=== PATIENT | female | born 1960 | race African-American/Black ===

== ENCOUNTER 2019-07-24 15:10 | Inpatient (IN) ==
[2019-07-24] MEDS ORDERED: ASPIRIN 300 MG SUPP RECTAL ONE (15:31)
[2019-07-24] MEDS ORDERED: LIDOCAINE 1% 20 ML VIAL ONE (15:33)
[2019-07-24] MEDS ORDERED: TIROFIBAN 5,000 MCG/100 ML PREMIX IV ONE (15:33)
[2019-07-24] MEDS ORDERED: HEPARIN 5,000 UNIT/1 ML VIAL ONE (15:47)
[2019-07-24] MEDS ORDERED: TIROFIBAN 5,000 MCG/100 ML PREMIX IV SCH (15:50)
[2019-07-24] MEDS ORDERED: METOPROLOL TARTRATE 5 MG/5 ML VIAL IV ONE ×3 (16:10→16:28)
[2019-07-24] MEDS ORDERED: NIFEdipine 10 MG CAPSULE PO ONE (16:40)
[2019-07-24] MEDS ORDERED: TICAGRELOR 90 MG TABLET ONE (16:44)
[2019-07-24] MEDS ORDERED: TICAGRELOR 90 MG TABLET PO STA (16:47)
[2019-07-24] MEDS ORDERED: ONDANSETRON 4 MG/2 ML VIAL IV PRN (17:46)
[2019-07-24] MEDS ORDERED: MAGNESIUM SULF RIDER 4 GM in PREMIX 1 EACH IV PRN (17:46)
[2019-07-24] MEDS ORDERED: fentaNYL INJ 1,250 MCG in SODIUM CHLORIDE 0.9% 225 ML IV PRN (17:53)
[2019-07-24] MEDS ORDERED: MIDAZOLAM 100 MG in SODIUM CHLORIDE 0.9% 80 ML IV PRN (17:53)
[2019-07-24] MEDS ORDERED: PHENYLEPHRINE INJ 160 MG in SODIUM CHLORIDE 0.9% 234 ML IV PRN (17:53)
[2019-07-24] MEDS ORDERED: NOREPINEPHRINE 16 MG in SODIUM CHLORIDE 0.9% 234 ML IV PRN (17:53)
[2019-07-24] MEDS ORDERED: SODIUM CHLORIDE 0.9% 1,000 ML IV SCH (18:00)
[2019-07-24] MEDS ORDERED: CISATRACURIUM 200 MG in SODIUM CHLORIDE 0.9% 180 ML IV SCH (18:00)
[2019-07-24] MEDS ORDERED: ASPIRIN CHEW 81 MG TABLET PO ONE (18:02)
[2019-07-24 18:56] LABS: Apearance,Urine CLEAR (Clear); Bacteria,Urine Occasional /HPF (Few); Bilirubin,Urine Negative (Negative); Blood, Urine Large mg/dL (Negative); Glucose,Urine (UA) >=500 mg/dL (Negative); Ketones,Urine Negative (Negative); Mucus,Urine Occasional /LPF (Occasional); Nitrite,Urine Negative (Negative); Protein,Urine 30 MG/DL; RBC,Urine 163 /HPF (0-4); Squamous Epithelial Cell,Urine Occasional /HPF (0-10); Urine Color Yellow (Yellow); Urine Specific Gravity > 1.060 (1.001-1.035); Urine Urobilinogen < 2.0 EU/DL (0.2-1.0); WBC,Urine <1 /HPF (0-6)
[2019-07-24 19:56] LABS: PT Patient Result 10.5 SECS (9.6-12.2); Partial Thromboplastin Time 26.2 SECS (20.8-36.0)
[2019-07-24 20:24] LABS: ABG HCO3 24.5 MMOL/L (20-26); ABG Oxygen Saturation 99.7 % (95-100); ABG PCO2 32.6 MM HG (35-48); ABG TCO2 17.8 MMOL/L (23-27)
[2019-07-24 20:27] LABS: CKMB % 8.5 %
[2019-07-24] MEDS: LOSARTAN 25 MG TABLET PO SCH (20:58)
[2019-07-24] MEDS: TICAGRELOR 90 MG TABLET PO SCH (20:58)
[2019-07-24] MEDS: carvediloL 6.25 MG TABLET PO SCH (20:58)
[2019-07-24] MEDS: ROSUVASTATIN 20 MG TABLET PO SCH (21:23)
[2019-07-25 00:51] LABS: Risk Ratio 5.04; VLDL CHOLESTEROL 28.2 MG/DL
[2019-07-25 03:21] LABS: CKMB % 5.9 %; Calcium 8.6 MG/DL (8.5-10.1); Osmolality,Calculated 282.3 MOS/KG (273-304)
[2019-07-25 03:22] LABS: Basophils % 0.1 % (0.0-0.8); Hematocrit 34.5 VOL% (35.7-47.0); Hemoglobin 12.1 GM/DL (12.0-16.0); Immature Granulocytes % 0.5 %; Immature Granulocytes Absolute 0.08 #; Lymphocytes # 1.8 10*3/uL (1.4-4.0); Lymphocytes % 10.9 % (21.3-54.2); Mean Corpuscular HGB Conc 35.1 GM/DL (32-36); Mean Corpuscular Volume 77.2 FL (87-102); Mean Platelet Volume 9.9 FL (9.6-12.0); Monocytes % 6.6 % (1.7-12.7); Neutrophils % 81.9 % (38.7-73.9); Platelet Count 286 T/CUMM (130-400); Red Blood Count 4.47 MC/CUMM (3.8-5.5); Red Cell Distribution Width 14.2 % (9.3-17.3); White Blood Count 16.4 T/CUMM (4-12)
[2019-07-25 03:30] LABS: Troponin I 95.7 NG/ML (0.00-0.045)
[2019-07-25 03:31] LABS: PT Patient Result 10.9 SECS (9.6-12.2); Partial Thromboplastin Time 23.3 SECS (20.8-36.0)
[2019-07-25 03:41] LABS: Albumin 3.2 G/DL (3.4-5.0); Bilirubin,Total 0.8 MG/DL (0.2-1.0); Calcium 8.7 MG/DL (8.5-10.1); Osmolality,Calculated 286.8 MOS/KG (273-304); Total Protein 6.5 G/DL (6.4-8.3)
[2019-07-25] MEDS: MAGNESIUM SULF RIDER 2 GM in PREMIX 1 EACH IV PRN (04:00)
[2019-07-25] MEDS: POTASSIUM CHLORIDE RIDER 20 MEQ in PREMIX 1 EACH IV PRN ×3 (04:01→12:16)
[2019-07-25] MEDS ORDERED: INSULIN REGULAR 100 UNIT/ML IV SCH (06:00)
[2019-07-25 06:48] LABS: ABG HCO3 22.7 MMOL/L (20-26); ABG Oxygen Saturation 98.9 % (95-100); ABG PCO2 34.9 MM HG (35-48); ABG PH 7.432 (7.35-7.45); ABG TCO2 23.8 MMOL/L (23-27)
[2019-07-25] MEDS: POTASSIUM CHLORIDE RIDER 10 MEQ in PREMIX 1 EACH IV PRN (07:40)
[2019-07-25] MEDS ORDERED: carvediloL 6.25 MG TABLET PO SCH (08:00)
[2019-07-25] MEDS: ASPIRIN CHEW 81 MG TABLET PO SCH (08:57)
[2019-07-25] MEDS: LOSARTAN 25 MG TABLET PO SCH (08:57)
[2019-07-25] MEDS: TICAGRELOR 90 MG TABLET PO SCH ×2 (08:57→20:50)
[2019-07-25] MEDS: PANTOPRAZOLE 40 MG VIAL IV SCH (08:58)
[2019-07-25 09:18] LABS: CKMB % 4.4 %
[2019-07-25] MEDS ORDERED: INFLUENZA VIRUS VACCINE 0.5 ML SYRINGE IM ONE (11:58)
[2019-07-25 12:10] LABS: CKMB % 3.9 %
[2019-07-25] MEDS: carvediloL 12.5 MG TABLET PO SCH ×2 (12:15→20:38)
[2019-07-25] MEDS: SPIRONOLACTONE 25 MG TABLET PO SCH ×2 (12:15→20:38)
[2019-07-25] MEDS ORDERED: LORazepam 2 MG/1 ML VIAL ONE (12:34)
[2019-07-25] MEDS: LORazepam 2 MG/1 ML VIAL IV PRN (12:35)
[2019-07-25] MEDS ORDERED: SODIUM CHLORIDE 0.9% 500 ML IV ONE (13:20)
[2019-07-25] MEDS: LOSARTAN 50 MG TABLET PO SCH (13:54)
[2019-07-25] MEDS ORDERED: GLUCAGON 1 MG VIAL IM PRN (16:25)
[2019-07-25] MEDS ORDERED: DEXTROSE 10% 250 ML BAG IV PRN (16:25)
[2019-07-25 16:48] LABS: CKMB % 2.5 %
[2019-07-25 16:49] LABS: Troponin I 51.8 NG/ML (0.00-0.045)
[2019-07-25] MEDS: DEXTROSE 5% NACL 0.45% 1,000 ML IV SCH (18:06)
[2019-07-25] MEDS: INSULIN REGULAR 100 UNIT/ML SUBCUT SCH (18:30)
[2019-07-25] MEDS: ROSUVASTATIN 20 MG TABLET PO SCH (20:39)
[2019-07-26 01:21] LABS: CKMB % 1.4 %
[2019-07-26 01:22] LABS: Troponin I 32.7 NG/ML (0.00-0.045)
[2019-07-26 04:25] LABS: ABG Base Excess 2.1 MMOL/L (-2.5-2.5); ABG HCO3 26.3 MMOL/L (20-26); ABG Oxygen Saturation 99.7 % (95-100); ABG PCO2 36.1 MM HG (35-48); ABG PH 7.461 (7.35-7.45); ABG TCO2 23.2 MMOL/L (23-27)
[2019-07-26] MEDS: INSULIN REGULAR 100 UNIT/ML SUBCUT SCH ×4 (06:04→17:29)
[2019-07-26] MEDS: DEXTROSE 5% NACL 0.45% 1,000 ML IV SCH ×2 (07:05→20:50)
[2019-07-26 08:49] LABS: Basophils % 0.1 % (0.0-0.8); Hematocrit 28.7 VOL% (35.7-47.0); Immature Granulocytes % 0.5 %; Lymphocytes # 1.9 10*3/uL (1.4-4.0); Lymphocytes % 10.1 % (21.3-54.2); Mean Corpuscular HGB Conc 34.8 GM/DL (32-36); Mean Corpuscular Volume 79.1 FL (87-102); Mean Platelet Volume 9.6 FL (9.6-12.0); Monocytes % 5.3 % (1.7-12.7); Red Blood Count 3.63 MC/CUMM (3.8-5.5); Red Cell Distribution Width 14.6 % (9.3-17.3); White Blood Count 19.1 T/CUMM (4-12)
[2019-07-26 08:56] LABS: Platelet Count 224 T/CUMM (130-400)
[2019-07-26] MEDS: TICAGRELOR 90 MG TABLET PO SCH ×2 (09:10→21:04)
[2019-07-26] MEDS: PANTOPRAZOLE 40 MG VIAL IV SCH (09:10)
[2019-07-26] MEDS: ASPIRIN CHEW 81 MG TABLET PO SCH (09:10)
[2019-07-26] MEDS: SPIRONOLACTONE 25 MG TABLET PO SCH (09:11)
[2019-07-26] MEDS: carvediloL 12.5 MG TABLET PO SCH ×3 (09:11→23:21)
[2019-07-26] MEDS: LOSARTAN 50 MG TABLET PO SCH (09:11)
[2019-07-26 09:18] LABS: Albumin 2.5 G/DL (3.4-5.0); Bilirubin,Total 0.4 MG/DL (0.2-1.0); Calcium 7.8 MG/DL (8.5-10.1); Total Protein 5.6 G/DL (6.4-8.3)
[2019-07-26] MEDS: POTASSIUM CHLORIDE RIDER 20 MEQ in PREMIX 1 EACH IV PRN (14:09)
[2019-07-26] MEDS: LORazepam 2 MG/1 ML VIAL IV PRN (14:11)
[2019-07-26] MEDS: ROSUVASTATIN 20 MG TABLET PO SCH (21:04)
[2019-07-27] MEDS: INSULIN REGULAR 100 UNIT/ML SUBCUT SCH ×4 (00:05→18:21)
[2019-07-27 04:04] LABS: Prealbumin 13.7 MG/DL (20-40)
[2019-07-27] MEDS: POTASSIUM CHLORIDE RIDER 10 MEQ in PREMIX 1 EACH IV PRN (06:02)
[2019-07-27] MEDS: ASPIRIN CHEW 81 MG TABLET PO SCH (09:38)
[2019-07-27] MEDS: carvediloL 12.5 MG TABLET PO SCH ×2 (09:39→18:26)
[2019-07-27] MEDS: TICAGRELOR 90 MG TABLET PO SCH ×2 (09:39→20:46)
[2019-07-27] MEDS: PANTOPRAZOLE 40 MG VIAL IV SCH (09:39)
[2019-07-27] MEDS: AMOXICILLIN/CLAV 875 MG TABLET PER TUBE SCH ×2 (09:40→20:46)
[2019-07-27] MEDS ORDERED: POTASSIUM PHOSPHATE 20 MMOL in SODIUM CHLORIDE 0.9% 250 ML IV ONE (11:00)
[2019-07-27 11:23] LABS: Basophils % 0.2 % (0.0-0.8); Eosinophils % 0.1 % (0.00-10.9); Hematocrit 26.4 VOL% (35.7-47.0); Hemoglobin 9.3 GM/DL (12.0-16.0); Immature Granulocytes % 0.7 %; Immature Granulocytes Absolute 0.13 #; Lymphocytes # 1.8 10*3/uL (1.4-4.0); Lymphocytes % 8.8 % (21.3-54.2); Mean Corpuscular HGB Conc 35.2 GM/DL (32-36); Mean Corpuscular Volume 78.8 FL (87-102); Mean Platelet Volume 9.8 FL (9.6-12.0); Neutrophils % 83.2 % (38.7-73.9); Platelet Count 207 T/CUMM (130-400); Red Blood Count 3.35 MC/CUMM (3.8-5.5); Red Cell Distribution Width 14.4 % (9.3-17.3); White Blood Count 19.8 T/CUMM (4-12)
[2019-07-27] MEDS: DEXTROSE 5% NACL 0.45% 1,000 ML IV SCH (11:37)
[2019-07-27 11:38] LABS: Calcium 7.9 MG/DL (8.5-10.1); Osmolality,Calculated 283.3 MOS/KG (273-304)
[2019-07-27] MEDS: ROSUVASTATIN 20 MG TABLET PO SCH (20:46)
[2019-07-28] MEDS: INSULIN REGULAR 100 UNIT/ML SUBCUT SCH ×4 (00:18→17:02)
[2019-07-28] MEDS: DEXTROSE 5% NACL 0.45% 1,000 ML IV SCH ×2 (00:31→14:30)
[2019-07-28] MEDS: ACETAMINOPHEN 325 MG TABLET PO PRN ×2 (05:30→17:51)
[2019-07-28 08:31] LABS: Basophils % 0.2 % (0.0-0.8); Eosinophils # 0.1 10*3/uL (0.0-0.87); Eosinophils % 0.6 % (0.00-10.9); Hematocrit 25.3 VOL% (35.7-47.0); Hemoglobin 8.7 GM/DL (12.0-16.0); Immature Granulocytes % 0.5 %; Immature Granulocytes Absolute 0.08 #; Lymphocytes % 12.9 % (21.3-54.2); Mean Corpuscular HGB Conc 34.4 GM/DL (32-36); Mean Corpuscular Volume 79.1 FL (87-102); Mean Platelet Volume 9.8 FL (9.6-12.0); Monocytes % 8.9 % (1.7-12.7); Neutrophils % 76.9 % (38.7-73.9); Platelet Count 221 T/CUMM (130-400); Red Cell Distribution Width 14.6 % (9.3-17.3); White Blood Count 15.8 T/CUMM (4-12)
[2019-07-28 08:51] LABS: Calcium 7.9 MG/DL (8.5-10.1); Osmolality,Calculated 279.5 MOS/KG (273-304)
[2019-07-28 08:58] LABS: Albumin 2.3 G/DL (3.4-5.0); Bilirubin,Direct 0.41 MG/DL (0.0-0.20); Bilirubin,Indirect 0.3 MG/DL (0.0-1.0); Bilirubin,Total 0.7 MG/DL (0.2-1.0); Total Protein 5.5 G/DL (6.4-8.3)
[2019-07-28] MEDS: PANTOPRAZOLE 40 MG VIAL IV SCH (10:39)
[2019-07-28] MEDS: ASPIRIN CHEW 81 MG TABLET PO SCH (10:39)
[2019-07-28] MEDS: TICAGRELOR 90 MG TABLET PO SCH ×2 (10:39→20:07)
[2019-07-28] MEDS: carvediloL 12.5 MG TABLET PO SCH ×2 (10:39→17:19)
[2019-07-28] MEDS: AMOXICILLIN/CLAV 875 MG TABLET PER TUBE SCH ×2 (10:40→20:07)
[2019-07-28] MEDS: POTASSIUM CHLORIDE RIDER 20 MEQ in PREMIX 1 EACH IV PRN ×2 (20:07→22:06)
[2019-07-28] MEDS: ROSUVASTATIN 20 MG TABLET PO SCH (20:07)
[2019-07-29] MEDS: INSULIN REGULAR 100 UNIT/ML SUBCUT SCH ×4 (00:13→17:49)
[2019-07-29] MEDS: ACETAMINOPHEN 325 MG TABLET PO PRN ×2 (00:17→17:11)
[2019-07-29] MEDS ORDERED: PHENYLEPHRINE DRIP 40 MG/250 ML PREMIX IV ONE (01:06)
[2019-07-29] MEDS: PHENYLEPHRINE DRIP 40 MG/250 ML PREMIX IV PRN ×2 (01:08→21:27)
[2019-07-29] MEDS ORDERED: SODIUM CHLORIDE 0.9% 250 ML IV ONE (02:04)
[2019-07-29] MEDS: LORazepam 2 MG/1 ML VIAL IV PRN ×2 (03:12→20:50)
[2019-07-29] MEDS: POTASSIUM CHLORIDE RIDER 20 MEQ in PREMIX 1 EACH IV PRN (03:30)
[2019-07-29 04:00] LABS: Basophils % 0.2 % (0.0-0.8); Eosinophils # 0.1 10*3/uL (0.0-0.87); Eosinophils % 1.1 % (0.00-10.9); Hematocrit 22.6 VOL% (35.7-47.0); Hemoglobin 7.8 GM/DL (12.0-16.0); Immature Granulocytes % 0.3 %; Immature Granulocytes Absolute 0.04 #; Lymphocytes # 1.6 10*3/uL (1.4-4.0); Lymphocytes % 11.8 % (21.3-54.2); Mean Corpuscular HGB Conc 34.5 GM/DL (32-36); Mean Corpuscular Volume 79.3 FL (87-102); Mean Platelet Volume 9.7 FL (9.6-12.0); Monocytes % 8.2 % (1.7-12.7); Neutrophils % 78.4 % (38.7-73.9); Platelet Count 216 T/CUMM (130-400); Red Blood Count 2.85 MC/CUMM (3.8-5.5); Red Cell Distribution Width 14.3 % (9.3-17.3); White Blood Count 13.3 T/CUMM (4-12)
[2019-07-29] MEDS: DEXTROSE 5% NACL 0.45% 1,000 ML IV SCH ×3 (04:11→17:25)
[2019-07-29 04:12] LABS: Calcium 7.6 MG/DL (8.5-10.1); Osmolality,Calculated 280.5 MOS/KG (273-304)
[2019-07-29] MEDS: POTASSIUM CHLORIDE RIDER 10 MEQ in PREMIX 1 EACH IV PRN (05:31)
[2019-07-29] MEDS: ASPIRIN CHEW 81 MG TABLET PO SCH (10:07)
[2019-07-29] MEDS: AMOXICILLIN/CLAV 875 MG TABLET PER TUBE SCH ×2 (10:07→20:29)
[2019-07-29] MEDS: carvediloL 12.5 MG TABLET PO SCH ×2 (10:07→16:23)
[2019-07-29] MEDS: TICAGRELOR 90 MG TABLET PO SCH ×2 (10:07→20:30)
[2019-07-29] MEDS: PANTOPRAZOLE 40 MG VIAL IV SCH (10:08)
[2019-07-30] MEDS: LORazepam 2 MG/1 ML VIAL IV PRN ×3 (00:35→14:06)
[2019-07-30] MEDS: INSULIN REGULAR 100 UNIT/ML SUBCUT SCH ×4 (00:53→18:36)
[2019-07-30] MEDS: PHENYLEPHRINE DRIP 40 MG/250 ML PREMIX IV PRN ×4 (01:50→22:44)
[2019-07-30 04:45] LABS: Basophils % 0.1 % (0.0-0.8); Eosinophils # 0.4 10*3/uL (0.0-0.87); Eosinophils % 2.8 % (0.00-10.9); Hematocrit 22.9 VOL% (35.7-47.0); Hemoglobin 7.9 GM/DL (12.0-16.0); Immature Granulocytes % 0.7 %; Lymphocytes # 1.7 10*3/uL (1.4-4.0); Lymphocytes % 11.6 % (21.3-54.2); Mean Corpuscular HGB Conc 34.5 GM/DL (32-36); Mean Platelet Volume 10.1 FL (9.6-12.0); Monocytes % 6.5 % (1.7-12.7); Neutrophils % 78.3 % (38.7-73.9); Platelet Count 272 T/CUMM (130-400); Red Cell Distribution Width 14.3 % (9.3-17.3); White Blood Count 14.5 T/CUMM (4-12)
[2019-07-30 05:14] LABS: Calcium 8.1 MG/DL (8.5-10.1); Osmolality,Calculated 281.4 MOS/KG (273-304)
[2019-07-30] MEDS: POTASSIUM CHLORIDE RIDER 20 MEQ in PREMIX 1 EACH IV PRN (05:27)
[2019-07-30 06:59] LABS: ABG Base Excess 2.5 MMOL/L (-2.5-2.5); ABG Oxygen Saturation 98.4 % (95-100); ABG PCO2 35.3 MM HG (35-48); ABG PH 7.485 (7.35-7.45); ABG PO2 207.1 MM HG (80-95); ABG TCO2 27.1 MMOL/L (23-27); Allen Test Positive; Pt O2 Delivery Device Ventilator
[2019-07-30] MEDS: DEXTROSE 5% NACL 0.45% 1,000 ML IV SCH ×2 (07:17→22:37)
[2019-07-30] MEDS: ACETAMINOPHEN 325 MG TABLET PO PRN (09:53)
[2019-07-30] MEDS: TICAGRELOR 90 MG TABLET PO SCH ×2 (09:54→21:09)
[2019-07-30] MEDS: AMOXICILLIN/CLAV 875 MG TABLET PER TUBE SCH ×2 (09:54→21:09)
[2019-07-30] MEDS: PANTOPRAZOLE 40 MG VIAL IV SCH (09:54)
[2019-07-30] MEDS: carvediloL 12.5 MG TABLET PO SCH ×2 (09:54→16:46)
[2019-07-30] MEDS: ASPIRIN CHEW 81 MG TABLET PO SCH (09:54)
[2019-07-30 10:13] LABS: ABG Base Excess 3.6 MMOL/L (-2.5-2.5); ABG HCO3 27.6 MMOL/L (20-26); ABG Oxygen Saturation 99.5 % (95-100); ABG PCO2 35.6 MM HG (35-48); ABG PH 7.488 (7.35-7.45)
[2019-07-30] MEDS ORDERED: PHENYTOIN INJ 1,000 MG in SODIUM CHLORIDE 0.9% 100 ML IV ONE (16:00)
[2019-07-30] MEDS: CHLORHEXIDINE 0.12% ORAL RINSE 60 ML BOTTLE SWISH/SPIT SCH (21:09)
[2019-07-30] MEDS: PHENYTOIN 100 MG/2 ML VIAL IV SCH (22:36)
[2019-07-31] MEDS: INSULIN REGULAR 100 UNIT/ML SUBCUT SCH ×5 (00:28→23:42)
[2019-07-31] MEDS: DEXTROSE 5% NACL 0.45% 1,000 ML IV SCH ×4 (02:00→23:33)
[2019-07-31 04:09] LABS: ABG Base Excess 3.5 MMOL/L (-2.5-2.5); ABG HCO3 27.6 MMOL/L (20-26); ABG Oxygen Saturation 98.8 % (95-100); ABG PH 7.464 (7.35-7.45); ABG TCO2 24.6 MMOL/L (23-27)
[2019-07-31 04:11] LABS: Basophils % 0.2 % (0.0-0.8); Eosinophils # 0.6 10*3/uL (0.0-0.87); Eosinophils % 4.1 % (0.00-10.9); Hematocrit 25.4 VOL% (35.7-47.0); Hemoglobin 8.8 GM/DL (12.0-16.0); Immature Granulocytes % 0.6 %; Immature Granulocytes Absolute 0.08 #; Lymphocytes # 1.6 10*3/uL (1.4-4.0); Lymphocytes % 11.4 % (21.3-54.2); Mean Corpuscular HGB Conc 34.6 GM/DL (32-36); Mean Corpuscular Volume 78.2 FL (87-102); Mean Platelet Volume 9.7 FL (9.6-12.0); Monocytes % 10.4 % (1.7-12.7); Neutrophils % 73.3 % (38.7-73.9); Platelet Count 278 T/CUMM (130-400); Red Blood Count 3.25 MC/CUMM (3.8-5.5); Red Cell Distribution Width 14.2 % (9.3-17.3); White Blood Count 13.9 T/CUMM (4-12)
[2019-07-31 04:27] LABS: Albumin 1.8 G/DL (3.4-5.0); Bilirubin,Total 0.9 MG/DL (0.2-1.0); Calcium 7.9 MG/DL (8.5-10.1); Osmolality,Calculated 286.8 MOS/KG (273-304); Total Protein 5.4 G/DL (6.4-8.3)
[2019-07-31] MEDS: PHENYLEPHRINE DRIP 40 MG/250 ML PREMIX IV PRN (05:45)
[2019-07-31] MEDS: POTASSIUM CHLORIDE RIDER 20 MEQ in PREMIX 1 EACH IV PRN (06:10)
[2019-07-31] MEDS: PHENYTOIN 100 MG/2 ML VIAL IV SCH ×3 (06:10→21:41)
[2019-07-31] MEDS: ACETAMINOPHEN 325 MG TABLET PO PRN (06:10)
[2019-07-31] MEDS: carvediloL 12.5 MG TABLET PO SCH ×2 (08:11→16:51)
[2019-07-31] MEDS: TICAGRELOR 90 MG TABLET PO SCH ×2 (09:25→20:11)
[2019-07-31] MEDS: ASPIRIN CHEW 81 MG TABLET PO SCH (09:25)
[2019-07-31] MEDS: PANTOPRAZOLE 40 MG VIAL IV SCH (09:25)
[2019-07-31] MEDS: AMOXICILLIN/CLAV 875 MG TABLET PER TUBE SCH ×2 (09:28→20:11)
[2019-07-31] MEDS: CHLORHEXIDINE 0.12% ORAL RINSE 60 ML BOTTLE SWISH/SPIT SCH ×2 (09:39→20:12)
[2019-07-31] MEDS: fentaNYL INJ 1,250 MCG in SODIUM CHLORIDE 0.9% 225 ML IV PRN ×2 (10:22→23:32)
[2019-07-31] MEDS: LORazepam 2 MG/1 ML VIAL IV PRN (15:35)
[2019-07-31] MEDS: ENOXAPARIN 40 MG/0.4 ML SYRINGE SUBCUT SCH (19:40)
[2019-08-01 04:23] LABS: ABG Base Excess 3.2 MMOL/L (-2.5-2.5); ABG HCO3 27.3 MMOL/L (20-26); ABG Oxygen Saturation 98.3 % (95-100); ABG PCO2 42.8 MM HG (35-48); ABG PH 7.422 (7.35-7.45); ABG TCO2 26.3 MMOL/L (23-27)
[2019-08-01 04:28] LABS: Basophils % 0.2 % (0.0-0.8); Eosinophils # 0.5 10*3/uL (0.0-0.87); Eosinophils % 2.7 % (0.00-10.9); Hematocrit 20.3 VOL% (35.7-47.0); Hemoglobin 7.1 GM/DL (12.0-16.0); Immature Granulocytes % 0.8 %; Immature Granulocytes Absolute 0.14 #; Lymphocytes % 11.2 % (21.3-54.2); Mean Corpuscular Volume 77.8 FL (87-102); Mean Platelet Volume 9.5 FL (9.6-12.0); Monocytes % 10.9 % (1.7-12.7); NRBC # 0.04 10*3/uL; Neutrophils % 74.2 % (38.7-73.9); Platelet Count 313 T/CUMM (130-400); Red Blood Count 2.61 MC/CUMM (3.8-5.5); Red Cell Distribution Width 14.2 % (9.3-17.3); White Blood Count 18.1 T/CUMM (4-12)
[2019-08-01 04:50] LABS: Albumin 1.6 G/DL (3.4-5.0); Bilirubin,Direct 1.08 MG/DL (0.0-0.20); Bilirubin,Indirect 0.2 MG/DL (0.0-1.0); Bilirubin,Total 1.3 MG/DL (0.2-1.0); Calcium 7.7 MG/DL (8.5-10.1); Osmolality,Calculated 282.3 MOS/KG (273-304); Total Protein 5.2 G/DL (6.4-8.3)
[2019-08-01 04:51] LABS: Prealbumin 9.4 MG/DL (20-40)
[2019-08-01] MEDS: POTASSIUM CHLORIDE RIDER 20 MEQ in PREMIX 1 EACH IV PRN (05:05)
[2019-08-01] MEDS: MAGNESIUM SULF RIDER 2 GM in PREMIX 1 EACH IV PRN (05:15)
[2019-08-01] MEDS: PHENYTOIN 100 MG/2 ML VIAL IV SCH (05:23)
[2019-08-01] MEDS: INSULIN REGULAR 100 UNIT/ML SUBCUT SCH ×3 (05:46→17:54)
[2019-08-01] MEDS: AMOXICILLIN/CLAV 875 MG TABLET PER TUBE SCH ×2 (09:39→20:06)
[2019-08-01] MEDS: carvediloL 12.5 MG TABLET PO SCH ×2 (09:39→16:27)
[2019-08-01] MEDS: TICAGRELOR 90 MG TABLET PO SCH ×2 (09:39→20:06)
[2019-08-01] MEDS: ACETAMINOPHEN 325 MG TABLET PO PRN (09:39)
[2019-08-01] MEDS: ASPIRIN CHEW 81 MG TABLET PO SCH (09:39)
[2019-08-01] MEDS: CHLORHEXIDINE 0.12% ORAL RINSE 60 ML BOTTLE SWISH/SPIT SCH ×2 (09:40→20:06)
[2019-08-01] MEDS: PANTOPRAZOLE 40 MG VIAL IV SCH (09:40)
[2019-08-01] MEDS: fentaNYL INJ 1,250 MCG in SODIUM CHLORIDE 0.9% 225 ML IV PRN ×2 (11:27→23:30)
[2019-08-01] MEDS: DEXTROSE 5% NACL 0.45% 1,000 ML IV SCH (13:01)
[2019-08-01] MEDS: ENOXAPARIN 40 MG/0.4 ML SYRINGE SUBCUT SCH (18:00)
[2019-08-02] MEDS: LORazepam 2 MG/1 ML VIAL IV PRN ×4 (00:02→17:11)
[2019-08-02] MEDS: INSULIN REGULAR 100 UNIT/ML SUBCUT SCH ×4 (00:51→18:41)
[2019-08-02] MEDS ORDERED: LORazepam 2 MG/1 ML VIAL IV PRN (00:52)
[2019-08-02] MEDS: MIDAZOLAM 100 MG in SODIUM CHLORIDE 0.9% 80 ML IV PRN (01:01)
[2019-08-02] MEDS: DEXTROSE 5% NACL 0.45% 1,000 ML IV SCH ×4 (03:03→20:24)
[2019-08-02 04:46] LABS: ABG Base Excess 4.5 MMOL/L (-2.5-2.5); ABG HCO3 28.5 MMOL/L (20-26); ABG Oxygen Saturation 95.9 % (95-100); ABG PH 7.479 (7.35-7.45); ABG PO2 72.4 MM HG (80-95); ABG TCO2 25.8 MMOL/L (23-27)
[2019-08-02 04:50] LABS: Basophils % 0.2 % (0.0-0.8); Eosinophils # 0.3 10*3/uL (0.0-0.87); Eosinophils % 1.4 % (0.00-10.9); Hematocrit 19.8 VOL% (35.7-47.0); Immature Granulocytes Absolute 0.18 #; Lymphocytes # 1.2 10*3/uL (1.4-4.0); Lymphocytes % 6.5 % (21.3-54.2); Mean Corpuscular HGB Conc 35.4 GM/DL (32-36); Mean Corpuscular Volume 76.7 FL (87-102); Mean Platelet Volume 9.5 FL (9.6-12.0); Monocytes % 4.4 % (1.7-12.7); NRBC # 0.11 10*3/uL; Neutrophils % 86.5 % (38.7-73.9); Platelet Count 348 T/CUMM (130-400); Red Blood Count 2.58 MC/CUMM (3.8-5.5); Red Cell Distribution Width 14.1 % (9.3-17.3); White Blood Count 17.9 T/CUMM (4-12)
[2019-08-02 05:01] LABS: Calcium 7.8 MG/DL (8.5-10.1); Osmolality,Calculated 278.4 MOS/KG (273-304)
[2019-08-02] MEDS: POTASSIUM CHLORIDE RIDER 20 MEQ in PREMIX 1 EACH IV PRN (06:15)
[2019-08-02] MEDS: ASPIRIN CHEW 81 MG TABLET PO SCH (08:21)
[2019-08-02] MEDS: AMOXICILLIN/CLAV 875 MG TABLET PER TUBE SCH ×2 (08:21→20:43)
[2019-08-02] MEDS: TICAGRELOR 90 MG TABLET PO SCH ×2 (08:21→20:43)
[2019-08-02] MEDS: CHLORHEXIDINE 0.12% ORAL RINSE 60 ML BOTTLE SWISH/SPIT SCH ×2 (08:22→20:43)
[2019-08-02] MEDS: carvediloL 12.5 MG TABLET PO SCH ×2 (08:23→18:40)
[2019-08-02] MEDS: PANTOPRAZOLE 40 MG VIAL IV SCH (08:25)
[2019-08-02] MEDS ORDERED: LIDOCAINE 1%/EPI INJ 20 ML VIAL ONE (11:41)
[2019-08-02] MEDS ORDERED: fentaNYL 100 MCG/2 ML VIAL ONE ×2 (13:22)
[2019-08-02] MEDS ORDERED: MIDAZOLAM 10 MG/2 ML VIAL ONE (13:23)
[2019-08-02] MEDS ORDERED: ROCURONIUM 100 MG/10 ML VIAL IV ONE (13:23)
[2019-08-02] MEDS: FLUCONAZOLE 40 MG/ML 35 ML/BOTTLE PER TUBE SCH (15:07)
[2019-08-02] MEDS ORDERED: LORazepam 2 MG/1 ML VIAL ONE (17:07)
[2019-08-02 17:54] LABS: Basophils % 0.2 % (0.0-0.8); Eosinophils # 0.2 10*3/uL (0.0-0.87); Eosinophils % 1.1 % (0.00-10.9); Hematocrit 27.5 VOL% (35.7-47.0); Hemoglobin 9.5 GM/DL (12.0-16.0); Immature Granulocytes % 0.6 %; Immature Granulocytes Absolute 0.09 #; Lymphocytes # 0.8 10*3/uL (1.4-4.0); Lymphocytes % 5.3 % (21.3-54.2); Mean Corpuscular HGB Conc 34.5 GM/DL (32-36); Mean Corpuscular Volume 78.6 FL (87-102); Mean Platelet Volume 9.3 FL (9.6-12.0); Monocytes % 1.7 % (1.7-12.7); NRBC # 0.12 10*3/uL; Neutrophils % 91.1 % (38.7-73.9); Platelet Count 347 T/CUMM (130-400); Red Cell Distribution Width 15.3 % (9.3-17.3)
[2019-08-02] MEDS: ACETAMINOPHEN 325 MG TABLET PO PRN (18:30)
[2019-08-02 18:56] LABS: Band Neutrophils 3 % (0-10); Eosinophils 1 % (0-10); Lymphocytes 4 % (20-55); Microcytosis 1+; Platelet Estimate Normal; Segmented Neutrophils 90 % (50-85); Total Cells Counted 100; Toxic Granulation 1+
[2019-08-02] MEDS: ENOXAPARIN 40 MG/0.4 ML SYRINGE SUBCUT SCH (19:20)
[2019-08-02] MEDS ORDERED: VALPROIC ACID INJ 1,000 MG in SODIUM CHLORIDE 0.9% 100 ML IV ONE (21:00)
[2019-08-03] MEDS: INSULIN REGULAR 100 UNIT/ML SUBCUT SCH ×4 (00:16→18:23)
[2019-08-03 04:39] LABS: ABG Base Excess 3.8 MMOL/L (-2.5-2.5); ABG HCO3 27.9 MMOL/L (20-26); ABG Oxygen Saturation 99.3 % (95-100); ABG PCO2 32.5 MM HG (35-48); ABG TCO2 24.2 MMOL/L (23-27)
[2019-08-03 05:17] LABS: Basophils % 0.1 % (0.0-0.8); Eosinophils # 0.1 10*3/uL (0.0-0.87); Eosinophils % 1.3 % (0.00-10.9); Hematocrit 26.7 VOL% (35.7-47.0); Hemoglobin 9.3 GM/DL (12.0-16.0); Immature Granulocytes % 0.6 %; Immature Granulocytes Absolute 0.07 #; Lymphocytes # 0.8 10*3/uL (1.4-4.0); Lymphocytes % 7.1 % (21.3-54.2); Mean Corpuscular HGB Conc 34.8 GM/DL (32-36); Mean Corpuscular Volume 77.8 FL (87-102); Mean Platelet Volume 9.4 FL (9.6-12.0); Monocytes % 2.8 % (1.7-12.7); NRBC # 0.09 10*3/uL; Neutrophils % 88.1 % (38.7-73.9); Platelet Count 364 T/CUMM (130-400); Red Blood Count 3.43 MC/CUMM (3.8-5.5); Red Cell Distribution Width 15.1 % (9.3-17.3); White Blood Count 10.9 T/CUMM (4-12)
[2019-08-03 05:37] LABS: Calcium 7.9 MG/DL (8.5-10.1); Osmolality,Calculated 282.1 MOS/KG (273-304)
[2019-08-03] MEDS: VALPROIC ACID INJ 500 MG in SODIUM CHLORIDE 0.9% 100 ML IV SCH ×3 (06:06→21:50)
[2019-08-03] MEDS: DEXTROSE 5% NACL 0.45% 1,000 ML IV SCH ×3 (06:50→18:23)
[2019-08-03] MEDS: POTASSIUM CHLORIDE RIDER 20 MEQ in PREMIX 1 EACH IV PRN (06:55)
[2019-08-03] MEDS: PANTOPRAZOLE 40 MG VIAL IV SCH (08:56)
[2019-08-03] MEDS: ASPIRIN CHEW 81 MG TABLET PO SCH (08:56)
[2019-08-03] MEDS: AMOXICILLIN/CLAV 875 MG TABLET PER TUBE SCH ×2 (08:56→21:50)
[2019-08-03] MEDS: TICAGRELOR 90 MG TABLET PO SCH ×2 (08:56→21:50)
[2019-08-03] MEDS: CHLORHEXIDINE 0.12% ORAL RINSE 60 ML BOTTLE SWISH/SPIT SCH ×2 (08:56→21:50)
[2019-08-03] MEDS: carvediloL 12.5 MG TABLET PO SCH ×2 (08:56→16:57)
[2019-08-03] MEDS: FLUCONAZOLE 40 MG/ML 35 ML/BOTTLE PER TUBE SCH (08:59)
[2019-08-03] MEDS: MIDAZOLAM 100 MG in SODIUM CHLORIDE 0.9% 80 ML IV PRN (16:27)
[2019-08-03 16:40] LABS: Hematocrit 24.8 VOL% (35.7-47.0); Hemoglobin 8.7 GM/DL (12.0-16.0)
[2019-08-03] MEDS: ENOXAPARIN 40 MG/0.4 ML SYRINGE SUBCUT SCH (18:27)
[2019-08-04] MEDS: INSULIN REGULAR 100 UNIT/ML SUBCUT SCH ×4 (00:33→18:37)
[2019-08-04] MEDS: DEXTROSE 5% NACL 0.45% 1,000 ML IV SCH ×3 (03:00→18:29)
[2019-08-04 04:02] LABS: ABG Base Excess 2.9 MMOL/L (-2.5-2.5); ABG Oxygen Saturation 99.2 % (95-100); ABG PH 7.523 (7.35-7.45); ABG TCO2 23.5 MMOL/L (23-27)
[2019-08-04 04:39] LABS: Basophils % 0.1 % (0.0-0.8); Eosinophils % 0.3 % (0.00-10.9); Hematocrit 23.2 VOL% (35.7-47.0); Hemoglobin 8.4 GM/DL (12.0-16.0); Immature Granulocytes % 0.8 %; Immature Granulocytes Absolute 0.12 #; Lymphocytes # 0.5 10*3/uL (1.4-4.0); Lymphocytes % 3.5 % (21.3-54.2); Mean Corpuscular HGB Conc 36.2 GM/DL (32-36); Mean Corpuscular Volume 77.1 FL (87-102); Mean Platelet Volume 9.3 FL (9.6-12.0); Monocytes % 2.8 % (1.7-12.7); NRBC # 0.06 10*3/uL; Neutrophils % 92.5 % (38.7-73.9); Platelet Count 287 T/CUMM (130-400); Red Blood Count 3.01 MC/CUMM (3.8-5.5); Red Cell Distribution Width 15.4 % (9.3-17.3); White Blood Count 14.5 T/CUMM (4-12)
[2019-08-04 04:50] LABS: Prealbumin 31.4 MG/DL (20-40)
[2019-08-04] MEDS: VALPROIC ACID INJ 500 MG in SODIUM CHLORIDE 0.9% 100 ML IV SCH ×3 (05:45→20:58)
[2019-08-04 06:09] LABS: Band Neutrophils 26 % (0-10); Eosinophils 1 % (0-10); Lymphocytes 6 % (20-55); Segmented Neutrophils 64 % (50-85); Total Cells Counted 100
[2019-08-04 06:10] LABS: Anisocytosis 1+; Hypochromasia Slight; Platelet Estimate Normal; Polychromasia Slight; Smudge Cells 1+; Target Cells 1+
[2019-08-04 06:45] LABS: Calcium 7.1 MG/DL (8.5-10.1)
[2019-08-04] MEDS: PANTOPRAZOLE 40 MG VIAL IV SCH (09:18)
[2019-08-04] MEDS: ASPIRIN CHEW 81 MG TABLET PO SCH (09:18)
[2019-08-04] MEDS: FLUCONAZOLE 40 MG/ML 35 ML/BOTTLE PER TUBE SCH (09:19)
[2019-08-04] MEDS: carvediloL 12.5 MG TABLET PO SCH ×2 (09:19→17:10)
[2019-08-04] MEDS: CHLORHEXIDINE 0.12% ORAL RINSE 60 ML BOTTLE SWISH/SPIT SCH ×2 (09:19→22:19)
[2019-08-04] MEDS: TICAGRELOR 90 MG TABLET PO SCH (09:19)
[2019-08-04] MEDS: LORazepam 2 MG/1 ML VIAL IV PRN (10:44)
[2019-08-04] MEDS ORDERED: PHENobarbital 130 MG/1 ML VIAL IV ONE (10:57)
[2019-08-04] MEDS: MIDAZOLAM 100 MG in SODIUM CHLORIDE 0.9% 80 ML IV PRN (18:43)
[2019-08-05] MEDS: INSULIN REGULAR 100 UNIT/ML SUBCUT SCH ×4 (01:09→17:37)
[2019-08-05 03:16] LABS: ABG Base Excess 2.4 MMOL/L (-2.5-2.5); ABG HCO3 26.6 MMOL/L (20-26); ABG Oxygen Saturation 99.9 % (95-100); ABG PCO2 34.2 MM HG (35-48); ABG PH 7.486 (7.35-7.45); ABG TCO2 24.3 MMOL/L (23-27)
[2019-08-05 03:20] LABS: Basophils % 0.1 % (0.0-0.8); Eosinophils # 0.1 10*3/uL (0.0-0.87); Eosinophils % 0.4 % (0.00-10.9); Immature Granulocytes % 0.6 %; Immature Granulocytes Absolute 0.09 #; Lymphocytes # 0.4 10*3/uL (1.4-4.0); Lymphocytes % 2.8 % (21.3-54.2); Mean Corpuscular HGB Conc 35.1 GM/DL (32-36); Mean Corpuscular Volume 78.1 FL (87-102); Mean Platelet Volume 9.9 FL (9.6-12.0); Monocytes % 1.4 % (1.7-12.7); Neutrophils % 94.7 % (38.7-73.9); Platelet Count 124 T/CUMM (130-400); Red Blood Count 2.19 MC/CUMM (3.8-5.5); Red Cell Distribution Width 15.6 % (9.3-17.3); White Blood Count 14.2 T/CUMM (4-12)
[2019-08-05 03:23] LABS: Hematocrit 17.1 VOL% (35.7-47.0)
[2019-08-05 03:39] LABS: Calcium 6.7 MG/DL (8.5-10.1)
[2019-08-05 03:42] LABS: Band Neutrophils 7 % (0-10); Lymphocytes 3 % (20-55); Segmented Neutrophils 89 % (50-85); Total Cells Counted 100
[2019-08-05] MEDS: LORazepam 2 MG/1 ML VIAL IV PRN (04:02)
[2019-08-05] MEDS ORDERED: PHENobarbital 130 MG/1 ML VIAL IV ONE (04:29)
[2019-08-05 04:37] LABS: Hypochromasia 2+; Platelet Estimate Normal
[2019-08-05 04:38] LABS: Polychromasia Few; Stomatocytes Few; Target Cells 1+
[2019-08-05 05:03] LABS: Eosinophils % 1.6 % (0.00-10.9); Hematocrit 18.9 VOL% (35.7-47.0); Hemoglobin 6.7 GM/DL (12.0-16.0); Immature Granulocytes % 1.2 %; Immature Granulocytes Absolute 0.03 #; Lymphocytes # 0.3 10*3/uL (1.4-4.0); Mean Corpuscular HGB Conc 35.4 GM/DL (32-36); Mean Corpuscular Volume 78.1 FL (87-102); Monocytes % 2.4 % (1.7-12.7); NRBC # 0.28 10*3/uL; Neutrophils % 83.8 % (38.7-73.9); Platelet Count 120 T/CUMM (130-400); Red Blood Count 2.42 MC/CUMM (3.8-5.5); Red Cell Distribution Width 15.5 % (9.3-17.3)
[2019-08-05] MEDS: MIDAZOLAM 100 MG in SODIUM CHLORIDE 0.9% 80 ML IV PRN ×2 (05:07→18:11)
[2019-08-05 05:14] LABS: White Blood Count 2.6 T/CUMM (4-12)
[2019-08-05] MEDS: VALPROIC ACID INJ 500 MG in SODIUM CHLORIDE 0.9% 100 ML IV SCH ×3 (06:03→21:18)
[2019-08-05 06:06] LABS: Band Neutrophils 43 % (0-10); Lymphocytes 7 % (20-55); Nucleated Red Blood Cells 15 (0-5); Segmented Neutrophils 49 % (50-85); Total Cells Counted 100
[2019-08-05 06:10] LABS: Giant Platelets Few; Platelet Estimate Decreased
[2019-08-05 06:11] LABS: Hypochromasia 2+; Target Cells 2+
[2019-08-05] MEDS: POTASSIUM CHLORIDE RIDER 20 MEQ in PREMIX 1 EACH IV PRN ×2 (06:19→09:16)
[2019-08-05] MEDS: PHENYLEPHRINE DRIP 40 MG/250 ML PREMIX IV PRN ×2 (06:30→14:30)
[2019-08-05] MEDS: carvediloL 12.5 MG TABLET PO SCH ×2 (07:49→16:36)
[2019-08-05] MEDS: ASPIRIN CHEW 81 MG TABLET PO SCH (08:43)
[2019-08-05] MEDS: CHLORHEXIDINE 0.12% ORAL RINSE 60 ML BOTTLE SWISH/SPIT SCH ×2 (08:43→21:24)
[2019-08-05] MEDS: PANTOPRAZOLE 40 MG VIAL IV SCH (08:43)
[2019-08-05] MEDS: FLUCONAZOLE 40 MG/ML 35 ML/BOTTLE PER TUBE SCH (08:44)
[2019-08-05] MEDS: ACETAMINOPHEN 325 MG TABLET PO PRN ×2 (08:49→15:48)
[2019-08-05] MEDS: DEXTROSE 5% NACL 0.45% 1,000 ML IV SCH ×2 (11:34→11:35)
[2019-08-05] MEDS: POTASSIUM CHLORIDE RIDER 10 MEQ in PREMIX 1 EACH IV PRN (11:37)
[2019-08-05] MEDS: POTASSIUM CHLORIDE 20 MEQ/15 ML UDCUP PER TUBE SCH ×3 (15:18→23:27)
[2019-08-05] MEDS: LEVOFLOXACIN INJ 750 MG in PREMIX 1 EACH IV SCH (15:18)
[2019-08-06] MEDS: INSULIN REGULAR 100 UNIT/ML SUBCUT SCH ×4 (01:21→18:33)
[2019-08-06] MEDS: ACETAMINOPHEN 325 MG TABLET PO PRN ×3 (03:15→15:19)
[2019-08-06] MEDS: DEXTROSE 5% NACL 0.45% 1,000 ML IV SCH ×3 (03:41→20:32)
[2019-08-06 04:07] LABS: Basophils % 0.2 % (0.0-0.8); Eosinophils # 0.2 10*3/uL (0.0-0.87); Hematocrit 23.6 VOL% (35.7-47.0); Hemoglobin 8.2 GM/DL (12.0-16.0); Immature Granulocytes % 0.8 %; Immature Granulocytes Absolute 0.13 #; Lymphocytes # 0.7 10*3/uL (1.4-4.0); Lymphocytes % 4.1 % (21.3-54.2); Mean Corpuscular HGB Conc 34.7 GM/DL (32-36); Mean Corpuscular Volume 79.2 FL (87-102); Mean Platelet Volume 11.8 FL (9.6-12.0); Monocytes % 2.1 % (1.7-12.7); NRBC # 0.08 10*3/uL; Neutrophils % 91.8 % (38.7-73.9); Platelet Count 112 T/CUMM (130-400); Red Blood Count 2.98 MC/CUMM (3.8-5.5); Red Cell Distribution Width 15.2 % (9.3-17.3); White Blood Count 16.4 T/CUMM (4-12)
[2019-08-06 04:09] LABS: ABG Base Excess 0.6 MMOL/L (-2.5-2.5); ABG Oxygen Saturation 99.3 % (95-100); ABG PCO2 34.5 MM HG (35-48); ABG PH 7.455 (7.35-7.45); ABG TCO2 22.5 MMOL/L (23-27)
[2019-08-06 04:30] LABS: Calcium 7.4 MG/DL (8.5-10.1); Osmolality,Calculated 284.3 MOS/KG (273-304)
[2019-08-06 05:01] LABS: Eosinophils 1 % (0-10); Hypochromasia Slight; Lymphocytes 2 % (20-55); Platelet Estimate Decreased; Polychromasia Few; Segmented Neutrophils 96 % (50-85); Target Cells Few; Total Cells Counted 100
[2019-08-06] MEDS: VALPROIC ACID INJ 500 MG in SODIUM CHLORIDE 0.9% 100 ML IV SCH ×3 (06:43→20:35)
[2019-08-06] MEDS: carvediloL 12.5 MG TABLET PO SCH ×2 (08:23→16:32)
[2019-08-06] MEDS: ASPIRIN CHEW 81 MG TABLET PO SCH (08:23)
[2019-08-06] MEDS: PANTOPRAZOLE 40 MG VIAL IV SCH (08:23)
[2019-08-06] MEDS: FLUCONAZOLE 40 MG/ML 35 ML/BOTTLE PER TUBE SCH (08:24)
[2019-08-06] MEDS: CHLORHEXIDINE 0.12% ORAL RINSE 60 ML BOTTLE SWISH/SPIT SCH ×2 (08:24→20:35)
[2019-08-06] MEDS ORDERED: LORazepam 2 MG/1 ML VIAL ONE (09:08)
[2019-08-06] MEDS: LORazepam 2 MG/1 ML VIAL IV PRN (09:15)
[2019-08-06] MEDS: MIDAZOLAM 100 MG in SODIUM CHLORIDE 0.9% 80 ML IV PRN (12:45)
[2019-08-06] MEDS: LEVOFLOXACIN INJ 750 MG in PREMIX 1 EACH IV SCH (15:11)
[2019-08-06] MEDS: TICAGRELOR 90 MG TABLET PO SCH (20:36)
[2019-08-07] MEDS: INSULIN REGULAR 100 UNIT/ML SUBCUT SCH ×4 (00:05→18:30)
[2019-08-07] MEDS: MIDAZOLAM 100 MG in SODIUM CHLORIDE 0.9% 80 ML IV PRN ×2 (01:20→15:56)
[2019-08-07 03:43] LABS: ABG Base Excess 1.1 MMOL/L (-2.5-2.5); ABG HCO3 25.4 MMOL/L (20-26); ABG Oxygen Saturation 99.5 % (95-100); ABG PCO2 33.6 MM HG (35-48); ABG PH 7.472 (7.35-7.45); ABG TCO2 23.1 MMOL/L (23-27)
[2019-08-07 04:06] LABS: Basophils % 0.2 % (0.0-0.8); Eosinophils # 0.2 10*3/uL (0.0-0.87); Eosinophils % 1.3 % (0.00-10.9); Hematocrit 19.7 VOL% (35.7-47.0); Hemoglobin 7.1 GM/DL (12.0-16.0); Immature Granulocytes % 0.7 %; Immature Granulocytes Absolute 0.09 #; Lymphocytes # 0.7 10*3/uL (1.4-4.0); Lymphocytes % 5.4 % (21.3-54.2); Mean Corpuscular Volume 77.9 FL (87-102); Mean Platelet Volume 11.8 FL (9.6-12.0); Monocytes % 3.8 % (1.7-12.7); NRBC # 0.04 10*3/uL; Neutrophils % 88.6 % (38.7-73.9); Red Blood Count 2.53 MC/CUMM (3.8-5.5); Red Cell Distribution Width 15.3 % (9.3-17.3); White Blood Count 12.2 T/CUMM (4-12)
[2019-08-07 04:07] LABS: Calcium 7.4 MG/DL (8.5-10.1); Osmolality,Calculated 283.3 MOS/KG (273-304); Platelet Count 80 T/CUMM (130-400)
[2019-08-07] MEDS: VALPROIC ACID INJ 500 MG in SODIUM CHLORIDE 0.9% 100 ML IV SCH ×3 (04:45→20:51)
[2019-08-07 05:17] LABS: Band Neutrophils 2 % (0-10); Hypochromasia 2+; Lymphocytes 4 % (20-55); Metamyelocytes 1 %; Platelet Estimate Decreased; Segmented Neutrophils 91 % (50-85)
[2019-08-07 05:19] LABS: Total Cells Counted 100
[2019-08-07] MEDS: POTASSIUM CHLORIDE RIDER 20 MEQ in PREMIX 1 EACH IV PRN ×2 (06:49→08:38)
[2019-08-07] MEDS: carvediloL 12.5 MG TABLET PO SCH ×2 (07:56→16:23)
[2019-08-07] MEDS: TICAGRELOR 90 MG TABLET PO SCH ×2 (08:38→20:51)
[2019-08-07] MEDS: ASPIRIN CHEW 81 MG TABLET PO SCH (08:38)
[2019-08-07] MEDS: PANTOPRAZOLE 40 MG VIAL IV SCH (08:38)
[2019-08-07] MEDS: CHLORHEXIDINE 0.12% ORAL RINSE 60 ML BOTTLE SWISH/SPIT SCH ×2 (08:39→20:50)
[2019-08-07] MEDS: FLUCONAZOLE 40 MG/ML 35 ML/BOTTLE PER TUBE SCH (08:39)
[2019-08-07] MEDS: DEXTROSE 5% NACL 0.45% 1,000 ML IV SCH (11:49)
[2019-08-07 14:43] LABS: Hematocrit 20.9 VOL% (35.7-47.0); Hemoglobin 7.4 GM/DL (12.0-16.0)
[2019-08-07] MEDS: LEVOFLOXACIN INJ 750 MG in PREMIX 1 EACH IV SCH (15:07)
[2019-08-07] MEDS: ACETAMINOPHEN 325 MG TABLET PO PRN (20:51)
[2019-08-07] MEDS: PHENYLEPHRINE DRIP 40 MG/250 ML PREMIX IV PRN (22:52)
[2019-08-08] MEDS: INSULIN REGULAR 100 UNIT/ML SUBCUT SCH ×4 (00:05→18:41)
[2019-08-08] MEDS: DEXTROSE 5% NACL 0.45% 1,000 ML IV SCH ×2 (03:25→18:17)
[2019-08-08 03:54] LABS: ABG Base Excess 2.4 MMOL/L (-2.5-2.5); ABG HCO3 26.6 MMOL/L (20-26); ABG Oxygen Saturation 98.4 % (95-100); ABG PCO2 34.3 MM HG (35-48); ABG PH 7.483 (7.35-7.45)
[2019-08-08 03:56] LABS: Basophils % 0.1 % (0.0-0.8); Eosinophils # 0.2 10*3/uL (0.0-0.87); Eosinophils % 1.6 % (0.00-10.9); Hematocrit 20.6 VOL% (35.7-47.0); Hemoglobin 7.3 GM/DL (12.0-16.0); Immature Granulocytes % 1.2 %; Immature Granulocytes Absolute 0.16 #; Lymphocytes # 1.5 10*3/uL (1.4-4.0); Lymphocytes % 11.1 % (21.3-54.2); Mean Corpuscular HGB Conc 35.4 GM/DL (32-36); Mean Corpuscular Volume 76.9 FL (87-102); Mean Platelet Volume 12.7 FL (9.6-12.0); Monocytes % 4.8 % (1.7-12.7); NRBC # 0.02 10*3/uL; Neutrophils % 81.2 % (38.7-73.9); Platelet Count 107 T/CUMM (130-400); Red Blood Count 2.68 MC/CUMM (3.8-5.5); Red Cell Distribution Width 15.6 % (9.3-17.3); White Blood Count 13.7 T/CUMM (4-12)
[2019-08-08] MEDS: VALPROIC ACID INJ 500 MG in SODIUM CHLORIDE 0.9% 100 ML IV SCH ×3 (04:14→20:51)
[2019-08-08] MEDS: MIDAZOLAM 100 MG in SODIUM CHLORIDE 0.9% 80 ML IV PRN ×2 (04:14→18:17)
[2019-08-08 04:18] LABS: Calcium 7.6 MG/DL (8.5-10.1)
[2019-08-08] MEDS: carvediloL 12.5 MG TABLET PO SCH (08:52)
[2019-08-08] MEDS ORDERED: SODIUM CHLORIDE 0.9% 1,000 ML IV PRN (09:40)
[2019-08-08] MEDS: TICAGRELOR 90 MG TABLET PO SCH (09:57)
[2019-08-08] MEDS: PANTOPRAZOLE 40 MG VIAL IV SCH (09:57)
[2019-08-08] MEDS: CHLORHEXIDINE 0.12% ORAL RINSE 60 ML BOTTLE SWISH/SPIT SCH ×2 (09:58→20:54)
[2019-08-08] MEDS: FLUCONAZOLE 40 MG/ML 35 ML/BOTTLE PER TUBE SCH ×2 (09:58→16:19)
[2019-08-08] MEDS: ASPIRIN CHEW 81 MG TABLET PO SCH (09:58)
[2019-08-08] MEDS: POTASSIUM CHLORIDE RIDER 20 MEQ in PREMIX 1 EACH IV PRN ×2 (14:17→18:12)
[2019-08-08] MEDS: LEVOFLOXACIN INJ 750 MG in PREMIX 1 EACH IV SCH (16:19)
[2019-08-08 19:30] LABS: Hematocrit 27.8 VOL% (35.7-47.0); Hemoglobin 9.8 GM/DL (12.0-16.0)
[2019-08-09] MEDS: INSULIN REGULAR 100 UNIT/ML SUBCUT SCH ×4 (00:35→19:23)
[2019-08-09 04:02] LABS: ABG Base Excess 2.4 MMOL/L (-2.5-2.5); ABG HCO3 26.5 MMOL/L (20-26); ABG Oxygen Saturation 96.8 % (95-100); ABG PCO2 30.4 MM HG (35-48); ABG PO2 72.4 MM HG (80-95); ABG TCO2 22.6 MMOL/L (23-27)
[2019-08-09 04:12] LABS: Basophils # 0.1 10*3/uL (0.0-0.2); Basophils % 0.3 % (0.0-0.8); Eosinophils # 0.3 10*3/uL (0.0-0.87); Eosinophils % 1.6 % (0.00-10.9); Hematocrit 27.6 VOL% (35.7-47.0); Hemoglobin 9.9 GM/DL (12.0-16.0); Immature Granulocytes % 2.7 %; Immature Granulocytes Absolute 0.47 #; Lymphocytes # 1.6 10*3/uL (1.4-4.0); Lymphocytes % 9.3 % (21.3-54.2); Mean Corpuscular HGB Conc 35.9 GM/DL (32-36); Mean Corpuscular Volume 78.6 FL (87-102); Monocytes % 5.2 % (1.7-12.7); NRBC # 0.06 10*3/uL; Neutrophils % 80.9 % (38.7-73.9); Platelet Count 180 T/CUMM (130-400); Red Blood Count 3.51 MC/CUMM (3.8-5.5); Red Cell Distribution Width 15.9 % (9.3-17.3); White Blood Count 17.3 T/CUMM (4-12)
[2019-08-09 04:21] LABS: Calcium 7.8 MG/DL (8.5-10.1); Osmolality,Calculated 281.3 MOS/KG (273-304)
[2019-08-09] MEDS: POTASSIUM CHLORIDE RIDER 20 MEQ in PREMIX 1 EACH IV PRN ×3 (05:32→18:30)
[2019-08-09] MEDS: VALPROIC ACID INJ 500 MG in SODIUM CHLORIDE 0.9% 100 ML IV SCH ×2 (05:32→13:29)
[2019-08-09] MEDS: MAGNESIUM SULF RIDER 2 GM in PREMIX 1 EACH IV PRN (05:32)
[2019-08-09] MEDS: CHLORHEXIDINE 0.12% ORAL RINSE 60 ML BOTTLE SWISH/SPIT SCH ×2 (07:16→20:50)
[2019-08-09] MEDS: DEXTROSE 5% NACL 0.45% 1,000 ML IV SCH ×2 (07:42→22:17)
[2019-08-09] MEDS: PANTOPRAZOLE 40 MG VIAL IV SCH (09:44)
[2019-08-09] MEDS: ASPIRIN CHEW 81 MG TABLET PO SCH (09:44)
[2019-08-09] MEDS: FLUCONAZOLE 40 MG/ML 35 ML/BOTTLE PER TUBE SCH (09:44)
[2019-08-09] MEDS: MIDAZOLAM 100 MG in SODIUM CHLORIDE 0.9% 80 ML IV PRN (09:57)
[2019-08-09] MEDS: LEVOFLOXACIN INJ 750 MG in PREMIX 1 EACH IV SCH (17:57)
[2019-08-09] MEDS: POTASSIUM CHLORIDE RIDER 10 MEQ in PREMIX 1 EACH IV PRN (20:19)
[2019-08-09] MEDS: VALPROIC ACID INJ 750 MG in SODIUM CHLORIDE 0.9% 100 ML IV SCH ×3 (22:17→22:19)
[2019-08-10] MEDS: MIDAZOLAM 100 MG in SODIUM CHLORIDE 0.9% 80 ML IV PRN ×2 (00:25→13:50)
[2019-08-10] MEDS: INSULIN REGULAR 100 UNIT/ML SUBCUT SCH ×4 (00:26→17:55)
[2019-08-10] MEDS: DEXTROSE 5% NACL 0.45% 1,000 ML IV SCH ×2 (03:26→17:55)
[2019-08-10 03:45] LABS: ABG Base Excess 1.4 MMOL/L (-2.5-2.5); ABG HCO3 25.7 MMOL/L (20-26); ABG Oxygen Saturation 97.7 % (95-100); ABG PCO2 35.3 MM HG (35-48); ABG PH 7.459 (7.35-7.45); ABG PO2 89.1 MM HG (80-95); ABG TCO2 22.9 MMOL/L (23-27)
[2019-08-10 03:56] LABS: Basophils % 0.2 % (0.0-0.8); Eosinophils # 0.3 10*3/uL (0.0-0.87); Eosinophils % 1.8 % (0.00-10.9); Hemoglobin 9.3 GM/DL (12.0-16.0); Immature Granulocytes % 6.3 %; Immature Granulocytes Absolute 1.17 #; Lymphocytes # 2.1 10*3/uL (1.4-4.0); Lymphocytes % 11.2 % (21.3-54.2); Mean Corpuscular HGB Conc 34.4 GM/DL (32-36); Mean Corpuscular Volume 81.1 FL (87-102); Mean Platelet Volume 11.2 FL (9.6-12.0); Monocytes % 4.9 % (1.7-12.7); NRBC # 0.09 10*3/uL; Neutrophils % 75.6 % (38.7-73.9); Platelet Count 262 T/CUMM (130-400); Red Blood Count 3.33 MC/CUMM (3.8-5.5); Red Cell Distribution Width 16.4 % (9.3-17.3); White Blood Count 18.4 T/CUMM (4-12)
[2019-08-10 04:12] LABS: Calcium 7.8 MG/DL (8.5-10.1); Osmolality,Calculated 282.3 MOS/KG (273-304)
[2019-08-10 05:09] LABS: Band Neutrophils 5 % (0-10); Eosinophils 1 % (0-10); Lymphocytes 13 % (20-55); Metamyelocytes 2 %; Platelet Estimate Normal; Segmented Neutrophils 73 % (50-85); Total Cells Counted 100
[2019-08-10] MEDS: VALPROIC ACID INJ 750 MG in SODIUM CHLORIDE 0.9% 100 ML IV SCH ×3 (07:05→21:17)
[2019-08-10] MEDS: POTASSIUM CHLORIDE RIDER 20 MEQ in PREMIX 1 EACH IV PRN (07:45)
[2019-08-10] MEDS: CHLORHEXIDINE 0.12% ORAL RINSE 60 ML BOTTLE SWISH/SPIT SCH ×2 (08:50→20:40)
[2019-08-10] MEDS: FLUCONAZOLE 40 MG/ML 35 ML/BOTTLE PER TUBE SCH (08:50)
[2019-08-10] MEDS: PANTOPRAZOLE 40 MG VIAL IV SCH (08:50)
[2019-08-10] MEDS: ASPIRIN CHEW 81 MG TABLET PO SCH (08:53)
[2019-08-10] MEDS: POTASSIUM CHLORIDE RIDER 10 MEQ in PREMIX 1 EACH IV PRN (09:30)
[2019-08-10] MEDS: DESITIN 4OZ/NYSTATIN 15 GRAM MIXTURE PASTE TOP SCH ×2 (15:37→23:48)
[2019-08-10] MEDS: LEVOFLOXACIN INJ 750 MG in PREMIX 1 EACH IV SCH (15:38)
[2019-08-11] MEDS: INSULIN REGULAR 100 UNIT/ML SUBCUT SCH ×4 (00:04→18:36)
[2019-08-11] MEDS: MIDAZOLAM 100 MG in SODIUM CHLORIDE 0.9% 80 ML IV PRN (03:00)
[2019-08-11 03:20] LABS: ABG Base Excess 2.6 MMOL/L (-2.5-2.5); ABG Oxygen Saturation 94.4 % (95-100); ABG PCO2 35.3 MM HG (35-48); ABG PH 7.485 (7.35-7.45); ABG PO2 71.3 MM HG (80-95); ABG TCO2 27.1 MMOL/L (23-27); Allen Test Positive; Pt O2 Delivery Device Ventilator
[2019-08-11] MEDS: VALPROIC ACID INJ 750 MG in SODIUM CHLORIDE 0.9% 100 ML IV SCH ×3 (04:44→22:25)
[2019-08-11 04:54] LABS: Basophils % 0.3 % (0.0-0.8); Eosinophils # 0.4 10*3/uL (0.0-0.87); Eosinophils % 2.8 % (0.00-10.9); Hemoglobin 8.9 GM/DL (12.0-16.0); Immature Granulocytes % 8.3 %; Immature Granulocytes Absolute 1.11 #; Lymphocytes # 2.1 10*3/uL (1.4-4.0); Lymphocytes % 15.4 % (21.3-54.2); Mean Corpuscular Volume 83.3 FL (87-102); Mean Platelet Volume 10.7 FL (9.6-12.0); Monocytes % 7.5 % (1.7-12.7); NRBC # 0.04 10*3/uL; Neutrophils % 65.7 % (38.7-73.9); Platelet Count 354 T/CUMM (130-400); Red Blood Count 3.24 MC/CUMM (3.8-5.5); Red Cell Distribution Width 17.2 % (9.3-17.3); White Blood Count 13.4 T/CUMM (4-12)
[2019-08-11 05:20] LABS: Band Neutrophils 2 % (0-10); Eosinophils 3 % (0-10); Lymphocytes 16 % (20-55); Platelet Estimate Normal; Segmented Neutrophils 73 % (50-85); Total Cells Counted 100
[2019-08-11 05:25] LABS: Calcium 7.9 MG/DL (8.5-10.1); Osmolality,Calculated 282.1 MOS/KG (273-304)
[2019-08-11] MEDS: DEXTROSE 5% NACL 0.45% 1,000 ML IV SCH ×2 (05:50→12:54)
[2019-08-11] MEDS: FLUCONAZOLE 40 MG/ML 35 ML/BOTTLE PER TUBE SCH (09:03)
[2019-08-11] MEDS: PANTOPRAZOLE 40 MG VIAL IV SCH (09:03)
[2019-08-11] MEDS: ASPIRIN CHEW 81 MG TABLET PO SCH (09:03)
[2019-08-11] MEDS: CHLORHEXIDINE 0.12% ORAL RINSE 60 ML BOTTLE SWISH/SPIT SCH ×2 (09:03→22:24)
[2019-08-11] MEDS: DESITIN 4OZ/NYSTATIN 15 GRAM MIXTURE PASTE TOP SCH ×2 (09:03→22:24)
[2019-08-11] MEDS: POTASSIUM CHLORIDE RIDER 20 MEQ in PREMIX 1 EACH IV PRN (09:41)
[2019-08-11] MEDS: LEVOFLOXACIN INJ 750 MG in PREMIX 1 EACH IV SCH (14:57)
[2019-08-11] MEDS: LORazepam 2 MG/1 ML VIAL IV PRN ×2 (16:44→16:55)
[2019-08-12] MEDS: LORazepam 2 MG/1 ML VIAL IV PRN ×3 (00:10→20:22)
[2019-08-12] MEDS: INSULIN REGULAR 100 UNIT/ML SUBCUT SCH (00:14)
[2019-08-12] MEDS ORDERED: MORPHINE 4 MG/1 ML VIAL ONE (01:37)
[2019-08-12] MEDS: MORPHINE 4 MG/1 ML VIAL IV PRN ×5 (01:40→23:22)
[2019-08-12] MEDS: DEXTROSE 5% NACL 0.45% 1,000 ML IV SCH (04:32)
[2019-08-12] MEDS: VALPROIC ACID INJ 750 MG in SODIUM CHLORIDE 0.9% 100 ML IV SCH ×3 (06:15→21:30)
[2019-08-12] MEDS ORDERED: LACTATED RINGERS 1,000 ML IV SCH (08:00)
[2019-08-12] MEDS: ASPIRIN CHEW 81 MG TABLET PO SCH (08:54)
[2019-08-12] MEDS: FLUCONAZOLE 40 MG/ML 35 ML/BOTTLE PER TUBE SCH (08:54)
[2019-08-12] MEDS: DESITIN 4OZ/NYSTATIN 15 GRAM MIXTURE PASTE TOP SCH ×2 (09:07→22:12)
[2019-08-12] MEDS: CHLORHEXIDINE 0.12% ORAL RINSE 60 ML BOTTLE SWISH/SPIT SCH (09:07)
[2019-08-12] MEDS: PANTOPRAZOLE 40 MG VIAL IV SCH (09:07)
[2019-08-12] MEDS: LEVOFLOXACIN INJ 750 MG in PREMIX 1 EACH IV SCH (15:20)
[2019-08-13] MEDS: LORazepam 2 MG/1 ML VIAL IV PRN ×2 (01:28→16:35)
[2019-08-13] MEDS: MORPHINE 4 MG/1 ML VIAL IV PRN ×2 (06:00→17:30)
[2019-08-13] MEDS: VALPROIC ACID INJ 750 MG in SODIUM CHLORIDE 0.9% 100 ML IV SCH ×3 (06:03→21:45)
[2019-08-13] MEDS: DESITIN 4OZ/NYSTATIN 15 GRAM MIXTURE PASTE TOP SCH ×2 (11:08→22:46)
[2019-08-14] MEDS: MORPHINE 4 MG/1 ML VIAL IV PRN ×4 (00:40→18:13)
[2019-08-14] MEDS: VALPROIC ACID INJ 750 MG in SODIUM CHLORIDE 0.9% 100 ML IV SCH ×3 (05:02→22:37)
[2019-08-14] MEDS: LORazepam 2 MG/1 ML VIAL IV PRN ×2 (08:32→15:35)
[2019-08-14] MEDS: DESITIN 4OZ/NYSTATIN 15 GRAM MIXTURE PASTE TOP SCH ×2 (09:45→22:37)
[2019-08-15] MEDS: MORPHINE 4 MG/1 ML VIAL IV PRN ×3 (05:43→20:47)
[2019-08-15] MEDS: VALPROIC ACID INJ 750 MG in SODIUM CHLORIDE 0.9% 100 ML IV SCH ×3 (06:22→20:48)
[2019-08-15] MEDS: LORazepam 2 MG/1 ML VIAL IV PRN (12:25)
[2019-08-15] MEDS: DESITIN 4OZ/NYSTATIN 15 GRAM MIXTURE PASTE TOP SCH ×2 (13:00→23:18)
[2019-08-16] MEDS: LORazepam 2 MG/1 ML VIAL IV PRN (00:53)
[2019-08-16] MEDS: VALPROIC ACID INJ 750 MG in SODIUM CHLORIDE 0.9% 100 ML IV SCH ×2 (06:15→19:19)
[2019-08-16] MEDS: MORPHINE 4 MG/1 ML VIAL IV PRN (10:42)
[2019-08-16] MEDS: DESITIN 4OZ/NYSTATIN 15 GRAM MIXTURE PASTE TOP SCH ×2 (10:42→20:46)
[2019-08-16] MEDS: CHLORHEXIDINE 0.12% ORAL RINSE 60 ML BOTTLE SWISH/SPIT SCH ×2 (19:19→20:45)
[2019-08-17] MEDS: VALPROIC ACID INJ 750 MG in SODIUM CHLORIDE 0.9% 100 ML IV SCH ×3 (02:00→20:17)
[2019-08-17] MEDS: MORPHINE 4 MG/1 ML VIAL IV PRN (06:24)
[2019-08-17] MEDS: CHLORHEXIDINE 0.12% ORAL RINSE 60 ML BOTTLE SWISH/SPIT SCH ×4 (09:02→21:38)
[2019-08-17] MEDS: DESITIN 4OZ/NYSTATIN 15 GRAM MIXTURE PASTE TOP SCH ×2 (09:02→21:38)
[2019-08-18] MEDS: VALPROIC ACID INJ 750 MG in SODIUM CHLORIDE 0.9% 100 ML IV SCH ×3 (02:21→17:30)
[2019-08-18] MEDS: CHLORHEXIDINE 0.12% ORAL RINSE 60 ML BOTTLE SWISH/SPIT SCH ×4 (09:34→21:33)
[2019-08-18] MEDS: DESITIN 4OZ/NYSTATIN 15 GRAM MIXTURE PASTE TOP SCH ×2 (09:36→21:33)
[2019-08-19] MEDS: MORPHINE 4 MG/1 ML VIAL IV PRN (01:39)
[2019-08-19] MEDS: VALPROIC ACID INJ 750 MG in SODIUM CHLORIDE 0.9% 100 ML IV SCH ×3 (02:00→16:59)
[2019-08-19] MEDS: CHLORHEXIDINE 0.12% ORAL RINSE 60 ML BOTTLE SWISH/SPIT SCH ×4 (08:59→22:00)
[2019-08-19] MEDS: DESITIN 4OZ/NYSTATIN 15 GRAM MIXTURE PASTE TOP SCH ×2 (08:59→22:01)
[2019-08-19] MEDS ORDERED: ACETAMINOPHEN 325 MG TABLET PO PRN (09:37)
[2019-08-20] MEDS: VALPROIC ACID INJ 750 MG in SODIUM CHLORIDE 0.9% 100 ML IV SCH ×3 (02:00→18:03)
[2019-08-20] MEDS: CHLORHEXIDINE 0.12% ORAL RINSE 60 ML BOTTLE SWISH/SPIT SCH ×4 (08:33→20:48)
[2019-08-20] MEDS: DESITIN 4OZ/NYSTATIN 15 GRAM MIXTURE PASTE TOP SCH ×2 (08:34→20:47)
[2019-08-20] MEDS: AMOXICILLIN/CLAV ES 600 125 ML/BOTTLE PER TUBE SCH ×2 (15:38→21:26)
[2019-08-21] MEDS: VALPROIC ACID INJ 750 MG in SODIUM CHLORIDE 0.9% 100 ML IV SCH ×3 (02:18→17:38)
[2019-08-21] MEDS: MORPHINE 4 MG/1 ML VIAL IV PRN (04:12)
[2019-08-21] MEDS: CHLORHEXIDINE 0.12% ORAL RINSE 60 ML BOTTLE SWISH/SPIT SCH ×4 (08:13→22:08)
[2019-08-21] MEDS: AMOXICILLIN/CLAV ES 600 125 ML/BOTTLE PER TUBE SCH ×2 (08:13→22:10)
[2019-08-21] MEDS: DESITIN 4OZ/NYSTATIN 15 GRAM MIXTURE PASTE TOP SCH ×2 (08:14→22:07)
[2019-08-22] MEDS: VALPROIC ACID INJ 750 MG in SODIUM CHLORIDE 0.9% 100 ML IV SCH ×3 (02:14→18:35)
[2019-08-22] MEDS: MORPHINE 4 MG/1 ML VIAL IV PRN ×2 (02:18→09:37)
[2019-08-22] MEDS: CHLORHEXIDINE 0.12% ORAL RINSE 60 ML BOTTLE SWISH/SPIT SCH ×4 (09:37→21:11)
[2019-08-22] MEDS: DESITIN 4OZ/NYSTATIN 15 GRAM MIXTURE PASTE TOP SCH ×2 (09:55→21:11)
[2019-08-22] MEDS: AMOXICILLIN/CLAV ES 600 125 ML/BOTTLE PER TUBE SCH ×2 (12:10→21:10)
[2019-08-23] MEDS: VALPROIC ACID INJ 750 MG in SODIUM CHLORIDE 0.9% 100 ML IV SCH ×3 (02:48→18:20)
[2019-08-23] MEDS: MORPHINE 4 MG/1 ML VIAL IV PRN (07:26)
[2019-08-23] MEDS: CHLORHEXIDINE 0.12% ORAL RINSE 60 ML BOTTLE SWISH/SPIT SCH ×4 (09:34→20:00)
[2019-08-23] MEDS: DESITIN 4OZ/NYSTATIN 15 GRAM MIXTURE PASTE TOP SCH ×2 (09:35→20:00)
[2019-08-23] MEDS: AMOXICILLIN/CLAV ES 600 125 ML/BOTTLE PER TUBE SCH ×2 (09:35→20:00)
[2019-08-24] MEDS: VALPROIC ACID INJ 750 MG in SODIUM CHLORIDE 0.9% 100 ML IV SCH ×3 (02:40→17:50)
[2019-08-24] MEDS: AMOXICILLIN/CLAV ES 600 125 ML/BOTTLE PER TUBE SCH (08:30)
[2019-08-24] MEDS: CHLORHEXIDINE 0.12% ORAL RINSE 60 ML BOTTLE SWISH/SPIT SCH (08:31)
[2019-08-24] MEDS: DESITIN 4OZ/NYSTATIN 15 GRAM MIXTURE PASTE TOP SCH ×2 (08:31→21:55)
[2019-08-24] MEDS ORDERED: fentaNYL 25 MCG/HR PATCH TRANSDERM SCH (12:00)
[2019-08-24] MEDS: SCOPOLAMINE 1.5 MG PATCH TRANSDERM SCH (12:36)
[2019-08-24] MEDS: ATROPINE 1 % OPH SOLN 5 ML BOTTLE SL SCH ×3 (13:07→21:54)
[2019-08-25] MEDS: VALPROIC ACID INJ 750 MG in SODIUM CHLORIDE 0.9% 100 ML IV SCH ×3 (01:51→17:55)
[2019-08-25] MEDS: MORPHINE 4 MG/1 ML VIAL IV PRN (05:10)
[2019-08-25] MEDS: ATROPINE 1 % OPH SOLN 5 ML BOTTLE SL SCH ×4 (08:14→23:29)
[2019-08-25] MEDS: DESITIN 4OZ/NYSTATIN 15 GRAM MIXTURE PASTE TOP SCH ×2 (08:14→23:29)
[2019-08-26] MEDS: VALPROIC ACID INJ 750 MG in SODIUM CHLORIDE 0.9% 100 ML IV SCH ×3 (01:59→17:15)
[2019-08-26] MEDS: MORPHINE 4 MG/1 ML VIAL IV PRN (03:35)
[2019-08-26] MEDS: ATROPINE 1 % OPH SOLN 5 ML BOTTLE SL SCH ×4 (09:14→20:19)
[2019-08-26] MEDS: DESITIN 4OZ/NYSTATIN 15 GRAM MIXTURE PASTE TOP SCH ×2 (09:15→20:18)
[2019-08-26] MEDS ORDERED: fentaNYL 50 MCG/HR PATCH TRANSDERM SCH (12:00)
[2019-08-26] MEDS: LORazepam 0.5 MG TABLET PO SCH ×2 (15:06→20:18)
[2019-08-27] MEDS: VALPROIC ACID INJ 750 MG in SODIUM CHLORIDE 0.9% 100 ML IV SCH ×3 (02:01→17:55)
[2019-08-27] MEDS: LORazepam 0.5 MG TABLET PO SCH ×3 (10:41→20:10)
[2019-08-27] MEDS: SCOPOLAMINE 1.5 MG PATCH TRANSDERM SCH (10:41)
[2019-08-27] MEDS: ATROPINE 1 % OPH SOLN 5 ML BOTTLE SL SCH ×4 (10:46→20:10)
[2019-08-27] MEDS: DESITIN 4OZ/NYSTATIN 15 GRAM MIXTURE PASTE TOP SCH ×2 (10:47→20:10)
[2019-08-28] MEDS: VALPROIC ACID INJ 750 MG in SODIUM CHLORIDE 0.9% 100 ML IV SCH ×2 (00:45→11:32)
[2019-08-28] MEDS: ATROPINE 1 % OPH SOLN 5 ML BOTTLE SL SCH (11:00)
[2019-08-28] MEDS: LORazepam 0.5 MG TABLET PO SCH (11:00)
[2019-08-28] MEDS: DESITIN 4OZ/NYSTATIN 15 GRAM MIXTURE PASTE TOP SCH (11:00)
[2019-08-28 15:41] VITALS: BP 113/62
== END 2019-08-28 15:32 | disposition expired | DRG 3 ==
LOC: N.ED 15:10 → N.CC 15:32 → SUATTDRO 15:49 → N.EDINP 16:05 → N.CC 16:13 → N.4E 08-12 16:18
PROVIDERS: ADMIT Internal Medicine Cardiovascular Disease; ATTEND Internal Medicine Nephrology
PROC: CLCCHCL (ICD-10-PCS; 2019-07-24 16:15)